=== PATIENT | male | born 1975 | race Caucasian/White ===

== ENCOUNTER 2020-01-02 06:53 | Outpatient (CLI) | payer BC ==
[2020-01-02 14:59] LABS: #Eosinphils 0.1 thou/uL (0.0-0.7); #Lymphocytes 2.2 thou/uL (1.20-3.40); #Monocytes 0.6 thou/uL (0.11-0.59); %Basophils 0.6 % (0.0-1.0); %Eosinophils 1.9 % (0.0-10.0); %Lymphocytes 31.3 % (21.0-51.0); %Monocytes 9.1 % (0.0-10.0); %Neutrophils 57.1 % (42.0-75.0); Hemoglobin 16.1 g/dL (14.0-18.0); Mean Corpuscular HGB CONC 34.9 g/dL (32.0-36.0); Mean Corpuscular Hemoglobin 32.5 pg (27.0-31.0); Mean Corpuscular Volume 93.1 fL (78.0-98.0); Mean Platelet Volume 8.3 fL (7.4-10.4); Platelet Count 229 thou/uL (130-400); RBC Distribution Width 11.8 % (11.5-14.5); Red Blood Cell (RBC) Count 4.96 mill/uL (4.70-6.10)
[2020-01-02 15:24] LABS: Anion Gap 12 mmol/L (10-20); BUN (Urea Nitrogen) 15 mg/dL (8.9-20.6); Calc. Creatinine Clearance 0 mL/min (70-130); Calcium 9.4 mg/dL (7.8-10.44); Carbon Dioxide 26 mmol/L (22-29); Chloride 106 mmol/L (98-107); Estimated GFR-MDRD 59; Glucose 109 mg/dL (70-105); Sodium 140 mmol/L (136-145)
== END 2020-01-02 06:54 | disposition home or self-care (01) ==
LOC: LABBT 06:53
PROVIDERS: ATTEND Orthopaedic Surgery
DX: Z01.818 Encounter for other preprocedural examination (principal); M75.52 Bursitis of left shoulder
CPT/HCPCS: 80048; 85025; 93005; 93010

== ENCOUNTER 2020-01-05 05:55 | Day surgery (SDC) | payer BC ==
[2020-01-02 14:20] VITALS: BMI 30.4
[2020-01-05] MEDS ORDERED: Fentanyl 100 MCG/2 ML VIAL ONE ×2 (06:36→07:02)
[2020-01-05] MEDS ORDERED: Midazolam HCl 2 mg/2 ml Vial ONE (06:36)
[2020-01-05] MEDS ORDERED: Lidocaine 1% w/Epinephrine 1:100K 20 ML VIAL ONE (07:05)
[2020-01-05] MEDS ORDERED: HYDROcodone/Acetaminophen 10/325 mg Tablet PO PRN ×2 (07:15)
[2020-01-05] MEDS ORDERED: traMADol HCl 50 MG TAB PO PRN ×2 (07:15)
[2020-01-05] MEDS ORDERED: Promethazine HCl 25 MG/ML VIAL IM PRN (07:15)
[2020-01-05] MEDS ORDERED: Ondansetron PF 4 MG/2 ML Vial IVP PRN (07:15)
[2020-01-05] MEDS ORDERED: Ropivacaine 0.2% 550 ML 550 ML NERVE BLCK SCH (07:15)
[2020-01-05] MEDS ORDERED: Acetaminophen 325 MG TAB PO PRN (07:15)
[2020-01-05] MEDS ORDERED: Zolpidem Tartrate 5 MG TAB PO PRN (07:15)
[2020-01-05] MEDS ORDERED: Fentanyl 100 MCG/2 ML VIAL IV PRN (07:16)
--- NOTE | 2020-01-05 07:41 | HP ---
HISTORY OF PRESENT ILLNESS: Mr. Mcclendon is a 44-year-old male, who presents with left shoulder pain. He is right-hand dominant. He has had multiple injections in the subacromial and AC joints. The pain can be severe. He had a previous MRI showing bursitis and AC joint arthritis. The pain is continued despite conservative care of shoulder. PAST MEDICAL HISTORY: Reflux, cholesterol. PAST SURGICAL HISTORY: [place] teeth. ALLERGIES: NO KNOWN DRUG ALLERGIES. MEDICATIONS: Include; 1. Cetirizine. 2. Meloxicam. 3. Pantoprazole. SOCIAL HISTORY: The patient has positive alcohol. No illicit drug use. Nonsmoker. is at bedside. PHYSICAL EXAMINATION: GENERAL: Alert and oriented male, in no acute distress. EXTREMITIES: The patient has a full range of motion. He has little bit of weakness in the supraspinatus. He has no instability. He got a negative Spurling and positive Horne. Speed and Yergason's are negative. IMAGING DATA: The patient's previous MRI showing acromioclavicular joint arthritis, potential superior labral changes. ASSESSMENT: 1. Bursitis. 2. Arthritis of acromioclavicular joint, possible SLAP tear. PLAN: For this patient is to do a distal clavicle resection with evaluation of biceps, possible tenodesis. The patient understands the risks and benefits of procedure and elected to proceed. The patient will be tracked to the operating room. He understands the risks and benefits of infection, pain, scar, bleeding, damage to vital structures, decreased range of motion and strength, Pancho deformity, continuous pain despite surgical intervention. He understands the risks and benefits and elected to proceed. Job ID: [id number] [facility]
[2020-01-05] MEDS ORDERED: Ropivacaine 0.2% HCl/PF (40 MG/20 ML VIAL) ONE (11:11)
[2020-01-05] MEDS ORDERED: Lidocaine 1% PF 5 ML VIAL ONE (11:11)
[2020-01-05] MEDS ORDERED: Ketorolac Tromethamine 30 MG/ML VIAL ONE (11:11)
[2020-01-05] MEDS ORDERED: Ropivacaine 0.5% HCl/PF (150 MG/30 ML VIAL) ONE (11:11)
[2020-01-05] MEDS ORDERED: PROPOFOL 200 MG/20 ML VIAL ONE (11:11)
[2020-01-05] MEDS ORDERED: Rocuronium Bromide 10 MG/ML (10ML VIAL) ONE (11:11)
[2020-01-05] MEDS ORDERED: Dexamethasone 20 MG/5 ML VIAL ONE (11:11)
[2020-01-05] MEDS ORDERED: Glycopyrrolate 0.2 MG/ML 5 ML SYRINGE ONE (11:11)
[2020-01-05] MEDS ORDERED: Ondansetron PF 4 MG/2 ML Vial ONE (11:11)
--- NOTE | 2020-01-07 09:27 | OP ---
DATE OF PROCEDURE: 01/05/2020 PREOPERATIVE DIAGNOSES: 1. Left acromioclavicular joint arthritis/pain. 2. Potential SLAP tear. POSTOPERATIVE DIAGNOSES: 1. Left acromioclavicular joint arthritis/pain. 2. Left capsular fraying/tear near footprint of supraspinatus and infraspinatus. 3. Degenerative undersurface sublabral foramen, no SLAP. PROCEDURES PERFORMED: 1. Distal clavicle resection. 2. Limited debridement. ANESTHESIOLOGIST: Temitope Nagy MD ANESTHESIA: The patient received general endotracheal intubation with interscalene block. ESTIMATED BLOOD LOSS: 30 mL. TOURNIQUET TIME: None. IMPLANTS: None. EXPLANTS: None. ANTIBIOTICS: Ancef 2 g. COMPLICATIONS: None. HISTORY OF PRESENT ILLNESS: Mr. Mcclendon is 44-year-old male, who has had shoulder pain for several years. He has had multiple injections. I discussed with the patient the risks and benefits of evaluation of his left shoulder for distal clavicle resection and evaluation of possible biceps tenodesis. I discussed the risks and benefits of the surgery and any indicated procedure. I discussed the risks and benefits of the procedure to include pain, scar, bleeding, infection, damage to vital structures, decreased range of motion and strength, continued pain despite surgical intervention, and loss of life or limb. The patient understood these risks and benefits and elected to proceed. DESCRIPTION OF PROCEDURE: Time-out was performed designating the patient's left upper extremity as the operative site based on site, consents, and marking. After time-out, the patient's posterior portal was placed and visualized intra- articularly using the spinal needle and placed in the rotator interval my anterior portal. I looked at the patient's subscapularis, which was intact. There was some fraying of the capsule near its insertion on the humerus. The biceps looked good throughout its course. No fraying or tearing. There was some sublabral foramen, some subtle degenerative changes, but no true SLAP. The biceps root was well anchored and stable. I debrided the capsular fraying that was noted superiorly within the joint. I debrided just a little edge of the labrum. I documented the pictures of the shoulder and inside the joint, the humerus and the glenoid. I then moved subacromially and excised the bursa subacromion, took down the CA ligament. I moved medially and exposed and found the clavicle. I placed lateral working portal for the subacromial space. After debriding the remnant of the bursa that was there, I cauterized and exposed the clavicle and placed my viewing to lateral and looked lateral from the anterior portal I placed and used a probe to find a position within the distal clavicle. I probed the distal clavicle and then started cauterizing. I then burred down, and with an entire luda's width I moved my scope portal anterior to ensure that the pictures showed complete anterior luda's width. Being happy with completion of distal clavicle I washed and closed with nylon. The patient will begin passive range of motion as tolerated. I will see him back in clinic in about 10 to 14 days. Job ID: [id number] [facility]
== END 2020-01-05 11:57 | disposition home or self-care (01) ==
LOC: SDC 05:55 → MERGE 10:54 → SDC 11:57
PROVIDERS: ATTEND Orthopaedic Surgery
PROC: 0PBB4ZZ Excision of Left Clavicle, Percutaneous Endoscopic Approach (ICD-10-PCS; principal; 2020-01-05)
DX: M19.012 Primary osteoarthritis, left shoulder (principal); M75.52 Bursitis of left shoulder; K21.9 Gastro-esophageal reflux disease without esophagitis; E78.00 Pure hypercholesterolemia, unspecified; Z98.890 Other specified postprocedural states; Z79.899 Other long term (current) drug therapy
CPT/HCPCS: A4306; J0690; J1100; J1885; J2001; J2250; J2405; J2704; J2795; J3010

== ENCOUNTER 2022-11-14 10:21 | Outpatient (CLI) | payer BC | END 2022-11-14 10:22 | disposition home or self-care (01) | LOC: TBSIIMAG 10:21 | PROVIDERS: ATTEND Orthopaedic Surgery | DX: M25.511 Pain in right shoulder (principal); M19.011 Primary osteoarthritis, right shoulder; M75.91 Shoulder lesion, unspecified, right shoulder ==

== ENCOUNTER 2022-11-28 09:40 | Outpatient (CLI) | payer BC ==
[2022-11-28 11:27] LABS: #Basophils 0.1 10x3/uL (0.0-0.2); #Eosinphils 0.1 10x3/uL (0.0-0.5); #Monocytes 0.6 10x3/uL (0.0-1.1); #Neutrophils 4.9 10x3/uL (1.5-8.4); %Basophils 0.9 % (0.0-2.0); %Lymphocytes 26.2 % (18.0-47.0); %Monocytes 8.2 % (0.0-10.0); %Neutrophils 63.3 % (40.0-75.0); Hemoglobin 16.8 g/dL (13.5-17.5); Mean Corpuscular HGB CONC 34.8 g/dL (32.0-36.0); Mean Corpuscular Hemoglobin 32.1 pg (27.0-33.0); Mean Corpuscular Volume 92.4 fl (81.2-95.1); Mean Platelet Volume 10.6 fl (7.4-10.4); Platelet Count 260 10x3/uL (150-450); Red Blood Cell (RBC) Count 5.23 10x6/uL (4.32-5.72); White Blood Cell (WBC) Count 7.8 10x3/uL (3.5-10.5)
== END 2022-11-28 09:41 | disposition home or self-care (01) ==
LOC: LABBT 09:40
PROVIDERS: ATTEND Orthopaedic Surgery
DX: Z01.812 Encounter for preprocedural laboratory examination (principal); M25.511 Pain in right shoulder
CPT/HCPCS: 85025

== ENCOUNTER 2022-12-03 05:38 | Day surgery (SDC) | payer BC ==
[2022-12-01 13:30] VITALS: BMI 31.0
[2022-12-03] MEDS ORDERED: fentaNYL PF 100 MCG/2 ML SYRINGE ONE ×2 (06:26→07:32)
[2022-12-03] MEDS ORDERED: HYDROmorphone 0.5 MG/0.5 ML SYRINGE ONE (06:26)
[2022-12-03] MEDS ORDERED: Lidocaine 1% (PF) 30 ML VIAL ONE ×2 (06:47→06:54)
[2022-12-03] MEDS ORDERED: Midazolam HCl 2 mg/2 ml Vial ONE (06:47)
[2022-12-03] MEDS ORDERED: Ropivacaine 0.5% HCl/PF (150 MG/30 ML VIAL) ONE (06:47)
[2022-12-03] MEDS ORDERED: EPINEPHrine 1 MG/ML AMP ONE (06:54)
[2022-12-03] MEDS ORDERED: Sodium Chloride 0.9% 100 ML ONE (07:06)
[2022-12-03] MEDS ORDERED: CEFAZOLIN 2 GM VIAL ONE (07:06)
[2022-12-03] MEDS ORDERED: PHENYLEPHRINE-NS 100 MCG/ML 10 ML SYRINGE ONE (07:35)
[2022-12-03] MEDS ORDERED: Ketorolac Tromethamine 30 MG/ML VIAL ONE (07:35)
[2022-12-03] MEDS ORDERED: Glycopyrrolate 0.2 MG/ML 5 ML SYRINGE ONE (07:35)
[2022-12-03] MEDS ORDERED: Lidocaine 1% PF 5 ML VIAL ONE (07:35)
[2022-12-03] MEDS ORDERED: Rocuronium Bromide 10 MG/ML (10ML VIAL) ONE (07:35)
[2022-12-03] MEDS ORDERED: PROPOFOL 200 MG/20 ML VIAL ONE (07:35)
[2022-12-03] MEDS ORDERED: Ondansetron PF 4 MG/2 ML Vial ONE (07:35)
[2022-12-03] MEDS ORDERED: Dexamethasone 20 MG/5 ML VIAL ONE (07:35)
[2022-12-03] MEDS ORDERED: NEOSTIGMINE 3 MG/3 ML SYR 3 MG/3 ML SYRINGE ONE (07:35)
[2022-12-03] MEDS ORDERED: HYDROcodone/Acetaminophen 5/325 mg Tablet PO PRN ×2 (07:45)
[2022-12-03] MEDS ORDERED: Ropivacaine 0.2% 550 ML 550 ML NERVE BLCK SCH (07:45)
[2022-12-03] MEDS ORDERED: Zolpidem Tartrate 5 MG TAB PO PRN (07:45)
[2022-12-03] MEDS ORDERED: traMADol HCl 50 MG TAB PO PRN ×2 (07:45)
[2022-12-03] MEDS ORDERED: Promethazine HCl 25 MG/ML VIAL IM PRN (07:45)
[2022-12-03] MEDS ORDERED: Ondansetron PF 4 MG/2 ML Vial IVP PRN (07:45)
[2022-12-03] MEDS ORDERED: Ketorolac Tromethamine 30 MG/ML VIAL IVP SCH (12:00)
== END 2022-12-03 11:25 | disposition home or self-care (01) ==
LOC: SDC 05:38
PROVIDERS: ATTEND Orthopaedic Surgery
DX: M19.011 Primary osteoarthritis, right shoulder (principal); S43.491A Other sprain of right shoulder joint, initial encounter; M75.111 Incomplete rotator cuff tear or rupture of right shoulder, not specified as traumatic; K21.9 Gastro-esophageal reflux disease without esophagitis; I10 Essential (primary) hypertension; E78.00 Pure hypercholesterolemia, unspecified; Z79.899 Other long term (current) drug therapy
CPT/HCPCS: A4306; J0171; J1170; J2001; J2250; J2795; J3490

== ENCOUNTER 2024-10-02 15:37 | Emergency (ER) | payer BC ==
[2024-10-02] MEDS ORDERED: Ketorolac Tromethamine 30 MG (1 mL) VIAL ONE (16:30)
[2024-10-02 16:49] LABS: #Basophils 0.09 10x3/uL (0.0-0.2); %Basophils 0.7 % (0.0-1.0); %Eosinophils 0.8 % (0.0-10.0); %Lymphocytes 15.6 % (21.0-51.0); %Monocytes 7.3 % (0.0-10.0); %Neutrophils 75.2 % (42.0-75.0); Hematocrit 48.8 % (42.0-52.0); Hemoglobin 16.8 g/dL (14.0-18.0); Mean Corpuscular HGB CONC 34.4 g/dL (32.0-36.0); Mean Corpuscular Hemoglobin 31.4 pg (27.0-31.0); Mean Corpuscular Volume 91.2 fL (78.0-98.0); Mean Platelet Volume 10.2 fL (7.4-10.4); Platelet Count 255 10x3/uL (130-400); RBC Distribution Width 12.6 % (11.5-14.5); Red Blood Cell (RBC) Count 5.35 mill/uL (4.70-6.10)
[2024-10-02 16:59] LABS: Actual Bicarbonate (HCO3v) 26.7 mEq/L (22-28); Analyzer IN Cardio ER; Base Excess -0.3 mEq/L (-2.0 to +3.0); Calcium, Ionized (venous) 1.18 mmol/L (1.16-1.32); Chloride (VBG) 103 mmol/L (98-106); Hematocrit-VBG 53 % (42.0-52.0); Hemoglobin (Hb) 17.9 g/dL (13.1-17.2); Potassium (VBG) 5.81 mmol/L (3.70-5.30); Sodium 142 mmol/L (133-146); pH (venous) 7.333 (7.32-7.43)
[2024-10-02 17:13] LABS: Troponin I Less than 0.010 ng/mL (< 0.028)
[2024-10-02 18:13] LABS: ALT (SGPT) 65 U/L (8-55); AST (SGOT) 42 U/L (5-34); Albumin 3.7 g/dL (3.5-5.0); Alkaline Phosphatase 60 U/L (40-110); Anion Gap 11 mmol/L (10-20); BUN (Urea Nitrogen) 10 mg/dL (8.9-20.6); Bilirubin, Total 0.4 mg/dL (0.2-1.2); CK (CPK) 131 U/L (30-200); Calc. Creatinine Clearance 0 mL/min (70-130); Calcium 8.9 mg/dL (7.8-10.44); Carbon Dioxide 23 mmol/L (22-29); Chloride 109 mmol/L (98-107); Estimated GFR 85; Globulin 3.3 g/dL (2.4-3.5); Glucose 87 mg/dL (70-105); Potassium 3.7 mmol/L (3.5-5.1); Sodium 139 mmol/L (136-145)
== END 2024-10-02 18:50 | disposition home or self-care (01) ==
LOC: ERS 15:37
DX: E86.0 Dehydration (principal)
CPT/HCPCS: 36415; 80053; 82550; 82805; 83605; 84484; 85025; 93005; 96374; J1885